=== PATIENT | male | born 1935 | race Caucasian/White ===

== ENCOUNTER 2017-01-03 11:06 | Inpatient (IN) | payer MEDICARE, MEDICAID ==
[~2017-01-03] VITALS: Ht 165.1 cm; Wt 59.0 kg
[2017-01-03 11:25] LABS: BASOPHILS # (AUTO) 0.1 /CMM (0.0-0.2); BASOPHILS % (AUTO) 0.6 % (0.0-2.0); EOSINOPHILS # (AUTO) 0.1 /CMM (0.0-0.7); EOSINOPHILS % (AUTO) 1.3 % (0.0-6.0); HEMATOCRIT 45 % (39-51); LYMPHOCYTES # (AUTO) 1.5 /CMM (0.8-4.8); LYMPHOCYTES % (AUTO) 15.9 % (20.0-44.0); MEAN CORPUSCULAR HEMOGLOBIN 31 PG (26.0-33.0); MEAN CORPUSCULAR HGB CONC 34 g/dl (31.0-36.0); MEAN CORPUSCULAR VOLUME 91 fL (80-96); MONOCYTES # (AUTO) 0.9 /CMM (0.1-1.30); MONOCYTES % (AUTO) 9.3 % (2.0-12.0); NEUTROPHILS # (AUTO) 6.6 /CMM (1.8-8.9); NEUTROPHILS % (AUTO) 72.9 % (43.0-81.0); PLATELET COUNT (AUTO) 216 /CMM (150-450); RDW COEFFICIENT OF VARIATION 16.1 (11.5-15.0); RED BLOOD CELL COUNT(AUTO) 4.88 MIL/uL (4.5-6.0); WHITE BLOOD COUNT (AUTO) 9.2 K/uL (4.3-11.0)
--- NOTE | 2017-01-03 11:25 | NUR ---
PT BIB PA FOR PSYCH EVAL C/O AUDITORY HALLUCINATIONS. PT CALM AND COOPERATIVE. DENIES SI/HI. NAD NOTED. DENIES PHYSICAL COMPLAINT. IN ER BED 11.
[2017-01-03 11:37] LABS: CARBON DIOXIDE 29 mmol/L (21-32); CHLORIDE 109 mmol/L (98-107); CREATININE 1.1 mg/dL (0.6-1.3); GLUCOSE 74 mg/dL (74-106); POTASSIUM 5.2 mmol/L (3.5-5.1); SODIUM SERUM 142 mmol/L (136-145); UREA NITROGEN, BLOOD 21 mg/dL (7-18)
[2017-01-03 11:44] LABS: ACETAMINOPHEN 0 ug/ml (10-30); ALANINE AMINOTRANSFERASE 33 U/L (12-78); ALBUMIN 3.7 g/dL (3.4-5.0); ALCOHOL, BLOOD < 3 mg/dL (0-0); ALKALINE PHOSPHATASE 102 U/L (46-116); ASPARTATE AMINOTRANSFERASE 31 U/L (15-37); BILIRUBIN,DIRECT 0.1 mg/dL (0.0-0.2); BILIRUBIN,TOTAL 0.7 mg/dL (0.2-1.0); SALICYLATE 0.4 mg/dL (2.8-20.0); TOTAL PROTEIN, SERUM 6.8 g/dL (6.4-8.2)
--- NOTE | 2017-01-03 11:55 | NUR ---
PAGED STRESS ANALYST STEAM BOX OPERATOR DONALD FOR PSYCH EVAL.
--- NOTE | 2017-01-03 11:56 | NUR ---
PATIENT ASSIGNED TO [place] [id number], ADMITTING PHYSICIAN DR RASHEED, ADMITTING PSYCHIATRIST DR PAYNE
--- NOTE | 2017-01-03 11:57 | NUR ---
RECEIVED A CALL FROM DONALD OLMSTEAD, SHE NOTIFIED ME SHE WILL CONTACT MEHUL HERNANDEZ TO COME EVALUATE THE PATIENT.
[2017-01-03 11:59] LABS: APPEARANCE,URINE Clear (CLEAR); BILIRUBIN,URINE Negative (NEGATIVE); BLOOD, URINE Negative Ery/uL (NEGATIVE); COLOR,URINE Yellow (YELLOW); KETONES,URINE Negative (NEGATIVE); LEUKOCYTE ESTERASE ,URINE Negative (NEGATIVE); NITRITE, URINE Negative (NEGATIVE); PH,URINE 6.5 (5.0-8.0); PROTEIN,URINE Trace mg/dl (NEGATIVE); UGLUCOSE Negative (NEGATIVE); UROBILINOGEN,URINE 0.2 EU/dL (0.2)
[2017-01-03 12:13] LABS: BACTERIA,URINE None seen /HPF (None Seen); RBC,URINE NONE SEEN /HPF (0-2); SQUAMOUS EPITHELIAL CELL,UR Rare /HPF (None Seen); WBC,URINE 0-2 /HPF (0-3)
[2017-01-03] MEDS ORDERED: POLY17PO4 PO (12:38)
[2017-01-03] MEDS ORDERED: METO25TA6 PO (12:38)
[2017-01-03] MEDS ORDERED: SERT25TA5 PO (12:38)
[2017-01-03] MEDS ORDERED: ZOLP5TAB2 PO (12:38)
[2017-01-03] MEDS ORDERED: AMIO200T2 PO (12:38)
[2017-01-03] MEDS ORDERED: BUSP5TAB3 PO (12:38)
[2017-01-03] MEDS ORDERED: HYDR28CR28 TP (12:38)
[2017-01-03] MEDS ORDERED: ASCO-340 PO (12:38)
[2017-01-03] MEDS ORDERED: DIGO125T PO (12:38)
[2017-01-03] MEDS ORDERED: TRAM50TA2 PO (12:38)
[2017-01-03] MEDS ORDERED: ATOR10TA PO (12:38)
[2017-01-03] MEDS ORDERED: AMIN887L PO (12:38)
[2017-01-03] MEDS ORDERED: SODI100010 PO (12:38)
[2017-01-03] MEDS ORDERED: AMLO10TA4 PO (12:38)
[2017-01-03] MEDS ORDERED: MV-M1TAB2 PO (12:38)
[2017-01-03] MEDS ORDERED: ACET325T53 PO (12:38)
[2017-01-03] MEDS ORDERED: FURO-144 PO (12:38)
--- NOTE | 2017-01-03 12:46 | NUR ---
ART AT BEDSIDE.
[2017-01-03] MEDS ORDERED: IPRA3AMP IH (13:18)
--- NOTE | 2017-01-03 13:53 | NUR ---
REPORT GIVEN TO JOSE CORONA FOR ADMISSION. PT TRANSPORTED TO [facility] IN STABLE CONDITION.
[2017-01-03] MEDS ORDERED: MAG HYDROX/AL HYDROX/SIMETH 30 ML UDC PO PRN (15:00)
[2017-01-03] MEDS ORDERED: MAGNESIUM HYDROXIDE 30 ML UDC PO PRN (15:00)
[2017-01-03] MEDS ORDERED: clonazePAM 0.5 MG TABLET PO PRN (15:00)
[2017-01-03] MEDS ORDERED: ACETAMINOPHEN 325 MG TABLET PO PRN ×2 (15:00→20:30)
[2017-01-03 15:17] VITALS: BP 144/84
--- NOTE | 2017-01-03 15:35 | NUR ---
pt medically cleared from ED. Pt admitted to [facility] for 5150 on the basis of danger to self. pt with auditory hallucination, decrease appetite, and suicidal thoughts. pt is alert oriented x 2 and ambulatory. he is calm and cooperative at this time. vital sign stable. no acute distress noted. mrsa swab done. skin assessment and pictures done, contrabanded belongings, psych and stopperer assembler aware of patient admission. orders obtained. pt going to room 214B.
[2017-01-03 16:00] VITALS: BP 120/77
--- NOTE | 2017-01-03 19:24 | NUR ---
GPS/RN NOTE: PATIENT LYING IN BED, NO APPARENT DISTRESS NOTED.
[2017-01-03 19:55] VITALS: BP 140/77
[2017-01-03] MEDS ORDERED: Medication Not On Formulary EA (Ipratropium/Albuterol Sulfate (Ipratr-Albuterol 0.5-3 Mg IH PRN (20:30)
[2017-01-03] MEDS ORDERED: TRAMADOL HCL 50 MG TABLET PO PRN (20:30)
[2017-01-03] MEDS ORDERED: IPRATROPIUM NEB FS 0.5 MG/2.5 ML AMPUL.NEB NEB PRN (21:00)
[2017-01-03] MEDS ORDERED: ALBUTEROL FS 2.5 MG/3 ML VIAL.NEB NEB PRN (21:00)
[2017-01-03] MEDS: METOPROLOL TARTRATE 25 MG TABLET PO SCH (21:18)
[2017-01-03] MEDS: ATORVASTATIN 10 MG TABLET PO SCH (21:20)
[2017-01-03] MEDS ORDERED: SERTRALINE HCL 25 MG TABLET PO SCH (22:00)
--- NOTE | 2017-01-04 05:47 | NUR ---
GPS/RN NOTE: SHOWERED LAST NIGHT . SLEPT WELL X 7 HOURS. STABLE CONDITION.
[2017-01-04 06:38] LABS: BASOPHILS % (AUTO) 0.4 % (0.0-2.0); EOSINOPHILS % (AUTO) 0.5 % (0.0-6.0); HEMATOCRIT 43 % (39-51); HEMOGLOBIN 14.3 g/dL (13.5-17.5); LYMPHOCYTES # (AUTO) 1.3 /CMM (0.8-4.8); LYMPHOCYTES % (AUTO) 14.2 % (20.0-44.0); MEAN CORPUSCULAR HEMOGLOBIN 31 PG (26.0-33.0); MEAN CORPUSCULAR HGB CONC 34 g/dl (31.0-36.0); MEAN CORPUSCULAR VOLUME 92 fL (80-96); MONOCYTES # (AUTO) 1.1 /CMM (0.1-1.30); MONOCYTES % (AUTO) 12.3 % (2.0-12.0); NEUTROPHILS # (AUTO) 6.4 /CMM (1.8-8.9); NEUTROPHILS % (AUTO) 72.6 % (43.0-81.0); PLATELET COUNT (AUTO) 221 /CMM (150-450); RDW COEFFICIENT OF VARIATION 17.2 (11.5-15.0); RED BLOOD CELL COUNT(AUTO) 4.63 MIL/uL (4.5-6.0); WHITE BLOOD COUNT (AUTO) 8.8 K/uL (4.3-11.0)
[2017-01-04] MEDS: AMIODARONE HCL 200 MG TABLET PO SCH (06:40)
[2017-01-04 07:05] LABS: ALBUMIN 3.8 g/dL (3.4-5.0); BILIRUBIN,TOTAL 0.8 mg/dL (0.2-1.0); MAGNESIUM 2.2 mg/dL (1.8-2.4); POTASSIUM 4.4 mmol/L (3.5-5.1); TOTAL PROTEIN, SERUM 6.9 g/dL (6.4-8.2)
[2017-01-04 07:08] LABS: THYROID STIMULATING HORMONE 0.792 uIU/mL (0.358-3.74)
[2017-01-04 08:00] VITALS: BP 136/82
[2017-01-04] MEDS: METOPROLOL TARTRATE 25 MG TABLET PO SCH ×2 (08:35→20:50)
[2017-01-04] MEDS: FUROSEMIDE 40 MG TABLET PO SCH (08:36)
[2017-01-04] MEDS: POLYETHYLENE GLYCOL 3350 17 GM POWD.PACK PO SCH (08:36)
[2017-01-04] MEDS: AMLODIPINE BESYLATE 10 MG TABLET PO SCH (08:36)
[2017-01-04] MEDS ORDERED: DIGOXIN 0.125 MG TABLET PO SCH (09:00)
[2017-01-04] MEDS ORDERED: METOPROLOL TARTRATE 25 MG TABLET PO SCH (09:00)
--- NOTE | 2017-01-04 11:37 | NUR ---
WOUND CARE CONSULT PATIENT SEEN AND SKIN INTEGRITY ASSESSMENT DONE. PATIENT CURRENTLY AMBULATORY, INDEPENDENT WITH BED MOBILITY AND CONTINENT. PATIENT PRESENTS WITH DRY SKIN AND RASHES TO HIS BILATERAL HANDS AND ARMS, PATIENT STATES HE HAS A HISTORY OF PSORIASIS AND DOES NOT USE ANY TOPICAL CREAMS FOR THIS. HE STATES THAT AT TIMES "IT ITCHES". WOUND CARE WILL DEFER TMT TO MD AT THIS TIME. PATIENT ALSO PRESENTS WITH A RAISED SKIN LESION JUST UNDER THE LEFT EYE ON THE CHEEK, WILL DEFER TO MD. UNKNOWN WHAT THIS LESION IS. PATIENT HAS NO OPEN WOUNDS AND INGA AT 19 AT THIS TIME. WILL SEE PRN.
[2017-01-04 16:00] VITALS: BP 110/63
[2017-01-04] MEDS: ARIPIPRAZOLE 5 MG TABLET PO SCH (16:00)
--- NOTE | 2017-01-04 17:57 | NUR ---
DR. RASHEED CAME AND EXAMINED THE PT., WAS NOTIFED ABOUT THE DIGOXIN LEVEL RESULT AND TOLD TO ORDER FOR THE SKIN RASHES.
[2017-01-04 19:53] VITALS: BP 118/73
[2017-01-04 20:00] VITALS: BP 118/73
[2017-01-04] MEDS: MIRTAZAPINE 15 MG TABLET PO SCH (20:50)
[2017-01-04] MEDS: ATORVASTATIN 10 MG TABLET PO SCH (20:50)
[2017-01-05] MEDS: AMIODARONE HCL 200 MG TABLET PO SCH (05:39)
[2017-01-05 08:00] VITALS: BP 114/78
[2017-01-05] MEDS: ARIPIPRAZOLE 5 MG TABLET PO SCH (09:31)
[2017-01-05] MEDS: METOPROLOL TARTRATE 25 MG TABLET PO SCH ×2 (09:31→21:00)
[2017-01-05] MEDS: FUROSEMIDE 40 MG TABLET PO SCH (09:32)
[2017-01-05] MEDS: AMLODIPINE BESYLATE 10 MG TABLET PO SCH (09:32)
[2017-01-05] MEDS: POLYETHYLENE GLYCOL 3350 17 GM POWD.PACK PO SCH (09:32)
--- NOTE | 2017-01-05 15:32 | NUR ---
[facility]/ post acute [address] [facility]. [facility] [address] ([phone]). field crop farmworker spoke to patient's sister Rimma Dodge who stated that she would like patient to return to [facility] [address] [facility] [place] [address] ([phone]). field crop farmworker spoke to CB from the facility who confirmed that patient can return upon discharge. field crop farmworker will help form a safe and proper discharge.
--- NOTE | 2017-01-05 15:43 | NUR ---
Psychosocial assessment was reviewed and I concur with the information provided. No changes are necessary. Cee See, [facility] [id number] Addendum: 01/05/17 at 1544 by CEE SEE SW Amended: Links added.
[2017-01-05 16:00] VITALS: BP 101/60
[2017-01-05 20:00] VITALS: BP 91/55
[2017-01-05] MEDS: ATORVASTATIN 10 MG TABLET PO SCH (22:12)
[2017-01-05] MEDS: MIRTAZAPINE 15 MG TABLET PO SCH (22:15)
[2017-01-06] MEDS: AMIODARONE HCL 200 MG TABLET PO SCH (06:13)
[2017-01-06 08:21] VITALS: BP 101/56
[2017-01-06] MEDS: ARIPIPRAZOLE 5 MG TABLET PO SCH (08:46)
[2017-01-06] MEDS: METOPROLOL TARTRATE 25 MG TABLET PO SCH ×2 (08:47→21:07)
[2017-01-06] MEDS: AMLODIPINE BESYLATE 10 MG TABLET PO SCH (08:47)
[2017-01-06] MEDS: POLYETHYLENE GLYCOL 3350 17 GM POWD.PACK PO SCH (08:47)
[2017-01-06] MEDS: FUROSEMIDE 40 MG TABLET PO SCH (08:47)
[2017-01-06] MEDS: TRIAMCINOLONE OINT 0.1% 15 GM TUBE TP SCH (08:48)
[2017-01-06 16:00] VITALS: BP 90/60
[2017-01-06 20:05] VITALS: BP 107/65
[2017-01-06] MEDS: MIRTAZAPINE 15 MG TABLET PO SCH (22:24)
[2017-01-06] MEDS: ATORVASTATIN 10 MG TABLET PO SCH (22:24)
[2017-01-06] MEDS: TEMAZEPAM 7.5 MG CAPSULE PO PRN (22:25)
[2017-01-07] MEDS: AMIODARONE HCL 200 MG TABLET PO SCH (06:19)
[2017-01-07 08:00] VITALS: BP 128/69
[2017-01-07] MEDS: POLYETHYLENE GLYCOL 3350 17 GM POWD.PACK PO SCH (09:06)
[2017-01-07] MEDS: ARIPIPRAZOLE 5 MG TABLET PO SCH (09:07)
[2017-01-07] MEDS: FUROSEMIDE 40 MG TABLET PO SCH (09:07)
[2017-01-07] MEDS: AMLODIPINE BESYLATE 10 MG TABLET PO SCH (09:08)
[2017-01-07] MEDS: METOPROLOL TARTRATE 25 MG TABLET PO SCH ×2 (09:09→21:11)
[2017-01-07] MEDS: TRIAMCINOLONE OINT 0.1% 15 GM TUBE TP SCH (09:10)
[2017-01-07 20:14] VITALS: BP 104/69
[2017-01-07] MEDS: MIRTAZAPINE 15 MG TABLET PO SCH (21:10)
[2017-01-07] MEDS: ATORVASTATIN 10 MG TABLET PO SCH (21:10)
[2017-01-08 00:57] VITALS: BP 110/70
[2017-01-08] MEDS: AMIODARONE HCL 200 MG TABLET PO SCH (05:55)
[2017-01-08 08:00] VITALS: BP 154/74
[2017-01-08] MEDS: FUROSEMIDE 40 MG TABLET PO SCH (09:28)
[2017-01-08] MEDS: AMLODIPINE BESYLATE 10 MG TABLET PO SCH (09:28)
[2017-01-08] MEDS: ARIPIPRAZOLE 5 MG TABLET PO SCH (09:28)
[2017-01-08] MEDS: POLYETHYLENE GLYCOL 3350 17 GM POWD.PACK PO SCH (09:29)
[2017-01-08] MEDS: METOPROLOL TARTRATE 25 MG TABLET PO SCH ×2 (09:29→21:24)
[2017-01-08] MEDS: TRIAMCINOLONE OINT 0.1% 15 GM TUBE TP SCH (09:37)
[2017-01-08] MEDS: ASPIRIN EC 81 MG TABLET.DR PO SCH (15:27)
[2017-01-08 16:32] VITALS: BP 138/70
--- NOTE | 2017-01-08 17:57 | NUR ---
GPS/RN MODEL MAKING SUPERVISOR KENDALL NOTIFIED REGARDING RESULTS FROM CT HEAD.
[2017-01-08 20:00] VITALS: BP 101/68
[2017-01-08] MEDS: MIRTAZAPINE 15 MG TABLET PO SCH (21:19)
[2017-01-08] MEDS: ATORVASTATIN 10 MG TABLET PO SCH (21:19)
[2017-01-08] MEDS: TEMAZEPAM 7.5 MG CAPSULE PO PRN (21:25)
[2017-01-09] MEDS: AMIODARONE HCL 200 MG TABLET PO SCH (06:00)
[2017-01-09 08:31] VITALS: BP 119/77
[2017-01-09] MEDS: ARIPIPRAZOLE 5 MG TABLET PO SCH (09:45)
[2017-01-09] MEDS: AMLODIPINE BESYLATE 10 MG TABLET PO SCH (09:46)
[2017-01-09] MEDS: FUROSEMIDE 40 MG TABLET PO SCH (09:46)
[2017-01-09] MEDS: ASPIRIN EC 81 MG TABLET.DR PO SCH (09:46)
[2017-01-09] MEDS: METOPROLOL TARTRATE 25 MG TABLET PO SCH ×2 (09:47→21:59)
[2017-01-09] MEDS: POLYETHYLENE GLYCOL 3350 17 GM POWD.PACK PO SCH (10:01)
[2017-01-09] MEDS: TRIAMCINOLONE OINT 0.1% 15 GM TUBE TP SCH (10:02)
[2017-01-09 16:00] VITALS: BP 102/56
[2017-01-09 20:22] VITALS: BP 116/71
[2017-01-09] MEDS: MIRTAZAPINE 15 MG TABLET PO SCH (21:59)
[2017-01-09] MEDS: ATORVASTATIN 10 MG TABLET PO SCH (21:59)
[2017-01-09] MEDS: TEMAZEPAM 7.5 MG CAPSULE PO PRN (22:03)
[2017-01-10] MEDS: AMIODARONE HCL 200 MG TABLET PO SCH (06:26)
[2017-01-10 08:00] VITALS: BP 102/56
[2017-01-10] MEDS: METOPROLOL TARTRATE 25 MG TABLET PO SCH ×2 (09:00→21:17)
[2017-01-10] MEDS: AMLODIPINE BESYLATE 10 MG TABLET PO SCH (09:00)
[2017-01-10] MEDS: ARIPIPRAZOLE 5 MG TABLET PO SCH (09:00)
[2017-01-10] MEDS: ASPIRIN EC 81 MG TABLET.DR PO SCH (09:00)
[2017-01-10] MEDS: FUROSEMIDE 40 MG TABLET PO SCH (09:01)
[2017-01-10] MEDS: TRIAMCINOLONE OINT 0.1% 15 GM TUBE TP SCH (09:03)
[2017-01-10] MEDS: POLYETHYLENE GLYCOL 3350 17 GM POWD.PACK PO SCH (09:04)
[2017-01-10 16:00] VITALS: BP 113/73
[2017-01-10] MEDS: ATORVASTATIN 10 MG TABLET PO SCH (21:17)
[2017-01-10] MEDS: MIRTAZAPINE 15 MG TABLET PO SCH (21:17)
[2017-01-10 22:31] VITALS: BP 138/81
[2017-01-11] MEDS: AMIODARONE HCL 200 MG TABLET PO SCH (06:09)
[2017-01-11 08:20] VITALS: BP 99/60
[2017-01-11] MEDS: TRIAMCINOLONE OINT 0.1% 15 GM TUBE TP SCH (09:00)
[2017-01-11] MEDS: AMLODIPINE BESYLATE 10 MG TABLET PO SCH (09:00)
[2017-01-11] MEDS: METOPROLOL TARTRATE 25 MG TABLET PO SCH ×2 (09:00→20:11)
[2017-01-11] MEDS: POLYETHYLENE GLYCOL 3350 17 GM POWD.PACK PO SCH (09:16)
[2017-01-11] MEDS: FUROSEMIDE 40 MG TABLET PO SCH (09:16)
[2017-01-11] MEDS: ARIPIPRAZOLE 5 MG TABLET PO SCH (09:17)
[2017-01-11] MEDS: ASPIRIN EC 81 MG TABLET.DR PO SCH (09:17)
--- NOTE | 2017-01-11 11:43 | NUR ---
patient haD HYPOTENSIVE EPISODE OF B/P DROPPING TO 60/33 LETHARGIC AND LISTLESS IN DAY ROOM CHAIR, PT TRANSFERRED TO ROOM AND BED . THEN B/P 83/29 NO C/O SOB OR HEAD ACHE OR DIZZINESS. MONITORING VITALS. called to jacky for notification and orders no orders given fluids pushed and feet elevated b/p at 11 15 is 108/69 97% SATURAION ON ROOM AIR.patient will be monitored continuously.
--- NOTE | 2017-01-11 13:39 | NUR ---
pts vitals 10 25 am=90/53hr - 70,11 35 am =94/61 hr=70, 1200 noon = 93/54,11 15am 128/69 hr 70 11 15am =128/69hr=70,93/54 hr =70, 1300 =110/67 hr=70 pt feeling better now awake and alert hydrating qs no acute distress
[2017-01-11 16:35] VITALS: BP 100/59
[2017-01-11 20:00] VITALS: BP 136/68
[2017-01-11] MEDS: ATORVASTATIN 10 MG TABLET PO SCH (21:17)
[2017-01-11] MEDS: MIRTAZAPINE 15 MG TABLET PO SCH (21:17)
[2017-01-12] MEDS: TEMAZEPAM 7.5 MG CAPSULE PO PRN (01:50)
[2017-01-12] MEDS: AMIODARONE HCL 200 MG TABLET PO SCH (06:00)
[2017-01-12 08:00] VITALS: BP 127/90
[2017-01-12] MEDS: POLYETHYLENE GLYCOL 3350 17 GM POWD.PACK PO SCH (08:44)
[2017-01-12] MEDS: ASPIRIN EC 81 MG TABLET.DR PO SCH (08:45)
[2017-01-12] MEDS: AMLODIPINE BESYLATE 10 MG TABLET PO SCH (08:45)
[2017-01-12] MEDS: FUROSEMIDE 40 MG TABLET PO SCH (08:45)
[2017-01-12] MEDS: ARIPIPRAZOLE 5 MG TABLET PO SCH (08:45)
[2017-01-12 08:46] VITALS: BP 127/90
[2017-01-12] MEDS: METOPROLOL TARTRATE 25 MG TABLET PO SCH (08:46)
[2017-01-12] MEDS: TRIAMCINOLONE OINT 0.1% 15 GM TUBE TP SCH (08:49)
--- NOTE | 2017-01-12 12:33 | NUR ---
PT. WITH AN ORDER TO D/C HOLD AND D/C TO [facility]. PT. WITHOUT DISTRESS, DENIES SUICIDAL AND HOMICIDAL. TO FOLLOW UP WITH PSYCH AND MEDICAL DOCTORS.
--- NOTE | 2017-01-12 15:25 | NUR ---
GPS/RN PT. D/C TO [facility] REPORT GIVEN TO NAMITA/PHYSICIAN RECRUITER . WITHOUT DISTRESS, DENIES SUICIDAL AND HOMICIDAL. REFUSED PICTURES AND TO SIGN EXIT CARE ON D/C. LEFT VIA AMBULANCE
--- NOTE | 2017-01-12 16:31 | NUR ---
Discharge Note: Patient was discharged to [facility] [address] [facility]. [facility] [address] ([phone]). Via med response. patient's sister Rimma Dodge / was notified. Patient was agreeable with the discharge plan. Patient's mood and affect were appropriate upon discharge. Patient denied suicidal and homicidal ideations. Patient agreed to follow-up with his psychiatrist Dr. Marmolejo. hand bindery assembly worker also provided patient with referrals to the [facility] [address] [facility] [address] ([phone]). Facilitated info to IDT team who are in agreement with discharge arrangement. The multidisciplinary exitcare form was done, printed, signed, and given to the patient.
== END 2017-01-12 14:00 | DRG 885 ==
LOC: ER 11:11 → GPS 13:11
PROVIDERS: ADMIT Psychiatry & Neurology Psychiatry; ATTEND Internal Medicine
DX: F33.3 Major depressive disorder, recurrent, severe with psychotic symptoms (principal); I11.0 Hypertensive heart disease with heart failure; I50.33 Acute on chronic diastolic (congestive) heart failure; R45.851 Suicidal ideations; I48.91 Unspecified atrial fibrillation; F29 Unspecified psychosis not due to a substance or known physiological condition; Z73.6 Limitation of activities due to disability; E78.5 Hyperlipidemia, unspecified; Z86.73 Personal history of transient ischemic attack (TIA), and cerebral infarction without residual deficits; J44.9 Chronic obstructive pulmonary disease, unspecified; Z91.81 History of falling; Z95.0 Presence of cardiac pacemaker; R79.89 Other specified abnormal findings of blood chemistry; M62.81 Muscle weakness (generalized); E78.00 Pure hypercholesterolemia, unspecified; G31.84 Mild cognitive impairment of uncertain or unknown etiology
CPT/HCPCS: 36415; 70450-TC; 80048-TC; 80053-TC; 80061-TC; 80076-TC; 80162-TC; 80305; 81000-TC; 82746; 83540-TC; 83735-TC; 84443-TC; 85025-TC; 87081-TC; 97001-TC; A4606; G0480; G6039-TC; Z7610